=== PATIENT | male | born 1985 | race Hispanic/Latino ===

== ENCOUNTER 2018-10-12 14:26 | Inpatient (IN) | payer OTHER ==
--- NOTE | 2018-10-12 15:55 | C.PDOC ---
History Of Present Illness 32 year old male with hx of HIV no on HAART therapy presents requesting detox from ETOH. Notes last drinkg earlier in the day. Denies any withdrawal symptoms. Denies taking any other drugs or SI / HI or fall / trauma. Denies any anxiety or depression. Denies any physical complaints. No rash, chest pain, fever, abd pain, cough, shortness of breath, headache, neck stiffness or back pain. No GI or complaints. Time Seen by Provider: 10/12/18 15:55 Chief Complaint (Nursing): Substance Abuse History Per: Patient History/Exam Limitations: no limitations Onset/Duration Of Symptoms: Hrs Current Symptoms Are (Timing): Still Present Suicide/Self Injury Attempted (Context): None Modifying Factor(s): Alcohol Recent travel outside of the [place]: No Past Medical History Reviewed: Historical Data, Nursing Documentation, Vital Signs Vital Signs: Last Vital Signs Temp 98.1 F 10/12/18 14:42 Pulse 87 10/12/18 14:42 Resp 18 10/12/18 14:42 BP 102/67 10/12/18 14:42 Pulse Ox 100 10/12/18 14:42 Primary Care Provider: Non [facility] Provider, - Medical History PMH: HIV Denies: Diabetes, Hepatitis, HTN, Seizures, Sexually Transmitted Disease Family History: States: Unknown Family Hx - Social History Hx Alcohol Use: Yes Hx Substance Use: Yes (marijuana/cocaine) - Immunization History Hx Tetanus Toxoid Vaccination: No Hx Influenza Vaccination: No Hx Pneumococcal Vaccination: No Review Of Systems Constitutional: Negative for: Fever, Chills, Sweats, Weakness, Malaise, Weight loss Eyes: Negative for: Pain, Vision Change, Conjunctivae Inflammation, Eyelid Inflammation ENT: Negative for: Ear Pain, Ear Discharge, Nose Pain, Nose Discharge, Nose Congestion, Mouth Pain, Mouth Swelling, Throat Pain, Throat Swelling, Other Cardiovascular: Negative for: Chest Pain, Palpitations, Paroxysmal Noc. Dyspnea, Edema, Light Headedness Respiratory: Negative for: Cough, Shortness of Breath, Pleuritic Pain, Sputum, Wheezing Gastrointestinal: Negative for: Nausea, Vomiting, Abdominal Pain, Diarrhea, Constipation, Melena, Hematochezia, Hematemesis, Rectal Pain Genitourinary: Negative for: Dysuria, Frequency, Incontinence, Hematuria, Penile Discharge, Scrotal Pain, Rash, Penile Pain Musculoskeletal: Negative for: Neck Pain, Shoulder Pain, Arm Pain, Back Pain, Hand Pain, Leg Pain Skin: Negative for: Lesions Neurological: Negative for: Weakness, Numbness, Confusion, Seizures, Altered M ental Status, Headache Psych: Negative for: Anxiety, Depression, Psychosis, Suicidal ideation Physical Exam - Physical Exam Appears: Well, Non-toxic, No Acute Distress Skin: Normal Color, Warm Head: Atraumatic, Normacephalic Eye(s): bilateral: Normal Inspection, PERRL, EOMI Ear(s): Bilateral: Normal Nose: Normal, No Flaring, No Discharge, No Epistaxis, No Deformity Oral Mucosa: Moist Tongue: Normal Appearing Lips: Normal Appearing Teeth: Normal Dentition Throat: Normal, No Erythema, No Exudate, No Drooling, No Mass Neck: Normal, Normal ROM, No Midline Cervical Tenderness, No Paracervical Tenderness, Supple, Other (no meningeal signs) Chest: Symmetrical, No Tenderness Cardiovascular: Rhythm Regular, No Friction Rub, No Murmur, No JVD Respiratory: Normal Breath Sounds, No Rales, No Rhonchi, No Wheezing Gastrointestinal/Abdominal: Soft, No Tenderness, No Mass, No Distention, No Guarding Back: Normal Inspection, No CVA Tenderness, No Vertebral Tenderness, No Paraspinal Tenderness Extremity: Normal ROM (x4) Neurological/Psych: Oriented x3, Normal Speech, Normal Cognition Gait: Steady ED Course And Treatment - Laboratory Results Result Diagrams: 10/13/18 11:05 10/13/18 11:05 O2 Sat by Pulse Oximetry: 100 (Room air) Pulse Ox Interpretation: Normal Medical Decision Making Medical Decision Makin yr old male w/ hx of HIV n/c on HAART therapy p/w etoh detox request. No signs of withdrawal on exam. NO physical complaints. Normal neuro exam. Crisis notified, blood work and UA ordered. 1817 labs unremarkable imaging unremarakble no cough or fever / chills or night sweats medically clear accepted to crisis: dR. Conrad: detox and bipolar pt in NAD, agreeable to plan Disposition - Disposition Disposition: HOSPITALIZED Disposition Time: 18:19 Condition: STABLE - Clinical Impression Clinical Impression: Alcohol abuse - Scribe Statement The provider has reviewed the documentation as recorded by the Scribe Parish Cervantes All medical record entries made by the Scribe were at my direction and personally dictated by me. I have reviewed the chart and agree that the record accurately reflects my personal performance of the history, physical exam, medical decision making, and the department course for this patient. I have also personally directed, reviewed, and agree with the discharge instructions and disposition.
[2018-10-12 16:56] LABS: BASO % 0.5 % (0.0-2.0); EOS # 0.1 K/uL (0.0-0.7); EOS % 2.1 % (0.0-4.0); HEMOGLOBIN 14.7 g/dL (12.0-18.0); LYMPH # 0.8 K/uL (1.0-4.3); LYMPH % 15.5 % (20.0-40.0); MEAN CELL VOLUME 85.2 fL (80.0-94.0); MEAN CORPUSCULAR HEMOGLOBIN 30.2 pg (27.0-31.0); MEAN CORPUSCULAR HGB CONC 35.4 g/dL (33.0-37.0); MEAN PLATELET VOLUME 7.9 fL (7.2-11.7); MONO # 0.6 K/uL (0.0-0.8); NEUT # 3.7 K/uL (1.8-7.0); NEUT % 70.9 % (50.0-75.0); RBC 4.88 Mil/uL (4.40-5.90); RED CELL DISTRIBUTION WIDTH 13.1 % (11.5-14.5); WHITE BLOOD COUNT 5.2 K/uL (4.8-10.8)
[2018-10-12 17:10] LABS: URINE BILIRUBIN NEGATIVE (NEGATIVE); URINE BLOOD NEGATIVE (NEGATIVE); URINE CLARITY Hazy (Clear); URINE COLOR Amber (YELLOW); URINE GLUCOSE (UA) NORMAL (Normal); URINE LEUKOCYTE ESTERASE NEG Leu/uL (Negative); URINE PROTEIN NEGATIVE (NEGATIVE); URINE UROBILINOGEN NORMAL mg/dL (0.2-1.0)
[2018-10-12 17:12] LABS: ACETAMINOPHEN < 10.0 ug/mL (10.0-30.0); ALB/GLOB RATIO 1.1 (1.0-2.1); ALBUMIN 4.2 g/dL (3.5-5.0); ALT/SGPT 49 U/L (21-72); AST/SGOT 46 U/L (17-59); BLOOD UREA NITROGEN 11 mg/dL (9-20); CALCIUM 9.7 mg/dl (8.6-10.4); GFR NON-AFRICAN AMERICAN > 60; SALICYLATE < 1.0 mg/dL 1
[2018-10-12 17:21] LABS: BARBITURATES, UR NEGATIVE (NEGATIVE); BENZODIAZEPINES, UR NEGATIVE (NEGATIVE); OPIATES, UR NEGATIVE (NEGATIVE); PHENCYCLIDINE, UR NEGATIVE (NEGATIVE)
--- NOTE | 2018-10-12 20:04 | PCM.BM ---
<Nataly Vila - Last Filed: 10/12/18 20:06> Treatment Plan Problems - Problems identified on initial assessmt Depression Date Initiated: 10/12/18 Time Initiated: 08:00 Assessment reference: NA Status: Active medication nonadherance Date Initiated: 10/12/18 Time Initiated: 08:00 Assessment reference: NA Status: Active ineffective coping Date Initiated: 10/12/18 Time Initiated: 08:00 Assessment reference: NA Status: Active knowledge Deficit- Alcohol Abuse Date Initiated: 10/12/18 Time Initiated: 08:00 Assessment reference: NA Status: Active Treatment assets and liabiliti Patient Assests: cooperative, insightful, ADL independent, cognitively intact Patient Liabilities: substance abuse - Milieu Protocol Maintain good personal hygiene: daily Encourage regular showers, daily Remind patient to perform daily oral care, daily Assist patient to perform ADL's Conduct patient checks and document Observation sheet: Q15 minutes Maintain personal safety: every other day Educate patient to report safety concerns to staff, every other day Monitor environment for contraband/sharps Medication safety: Monitor for expected outcome, potential side effects: every other day, Assess barriers to learning: every other day, Assess readiness for medication education: every other day <Laurel Conrad - Last Filed: 10/16/18 22:34> - Diagnosis (1) Bipolar 1 disorder, depressed, severe Status: Acute Interventions: 10/16/18 22:35 * Assess/adjust medications daily and /or as needed * See patient on an individual basis 7x/week to assess level of manic behaviors and stability * Discuss risks, benefits, side effects and alternatives of medications * <Carrie Kruger - Last Filed: 10/17/18 15:24> Family Contact Family involvement: Patient does not wish Family/SO involvement Family contact: Patient declines to allow family contact at present - Goals for Treatment Patient goals for treatment: "I am going to [facility] outpatient program." Discharge/Continuing Care - Education Needs Education Needs: Patient Medication, Patient Diagnosis/Disease Process, Patient Coping Skills, Patient Placement options, Patient Community resources - Discharge Discharge Criteria: Free of Suicidal thoughts, Normal sleep pattern, Ability to care for self, No longer exhibiting s/s of withdrawal, Reduction of target symptoms Discharge to:: Home, With Family - Treatment Team Participation Discussed with Family/SO: No Was Patient/Family/SO present at Treatment Team Meeting: Yes
--- NOTE | 2018-10-13 09:57 | CP.PCM.CON ---
History of Present Illness - History of Present Illness History of Present Illness: PGy-1 Medicine Consult Note for Dr. Glass Patient is a 32 year old male with PMHx HIV and ETOH abuse, initially presenting to ER for ETOH detox. Medicine team was consulted for known HIV positive status. Patient infected with HIV congenitally and states he has been non- compliant with medical therapy for many many years. Patient states his CD4 count is 50, though he does not see a doctor outpatient. Patient states that HIV is killing him. He states that "the AIDS is making me cuckoo". Patient states he drinks 1 cup (measured out) per day of whiskey. He states he does not get withdrawal symptoms for alcohol. Patient denies any known opportunistic infections, aside from stating that his HIV has cause a decline in mental function. Patient denies fevers, chills, shortness of breath, nausea, vomiting, diarrhea, skin rashes, chest pain, dizziness, headache. PMHx: HIV, ETOH Allergies: "every side effect from every HIV medication". Otherwise, NKA Surgical hx: Denies Social hx: 1 cup of whisky daily. 1 ppd smoker for many years. Smokes marijuana recreationally. Denies other drug use including IVDU. Family hx: mother - HIV Medications: Takes no medications at home PMD: Denies Review of Systems - Constitutional Constitutional: absent: Chills, Fever - EENT Eyes: absent: Blurred Vision, Photophobia Nose/Mouth/Throat: absent: Nasal Congestion, Sore Throat - Cardiovascular Cardiovascular: absent: Chest Pain, Dyspnea - Respiratory Respiratory: absent: Cough, Wheezing - Gastrointestinal Gastrointestinal: absent: Nausea, Vomiting - Genitourinary Genitourinary: absent: Dysuria, Flank Pain - Musculoskeletal Musculoskeletal: absent: Back Pain, Neck Pain - Neurological Neurological: Confusion. absent: Dizziness, Numbness, Focal Weakness - Psychiatric Psychiatric: absent: Anxiety, Depression Additional comments: "the aids has made me cuckoo" - Hematologic/Lymphatic Hematologic: absent: Easy Bleeding, Easy Bruising Past Patient History - Past Social History Smoking Status: Current Some Days Smoker - CARDIAC Hx Hypertension: No - PULMONARY Hx Tuberculosis: No - NEUROLOGICAL Hx Seizures: No - HEMATOLOGICAL/ONCOLOGICAL Hx Human Immunodeficiency Virus (HIV): Yes - MUSCULOSKELETAL/RHEUMATOLOGICAL Hx Falls: No - GENITOURINARY/GYNECOLOGICAL Hx Sexually Transmitted Disorders: No - PSYCHIATRIC Hx Substance Use: Yes - SURGICAL HISTORY Hx Surgeries: No Meds Allergies/Adverse Reactions: Allergies Allergy/AdvReac Type Severity Reaction Status Date / Time No Known Allergies Allergy Verified 09/20/18 07:32 - Medications Medications: Current Medications Hydroxyzine HCl (Atarax) 25 mg PO Q6 PRN PRN Reason: Anxiety Last Admin: 10/12/18 21:41 Dose: 25 mg Trazodone HCl (Desyrel) 50 mg PO HS PRN PRN Reason: Insomnia Last Admin: 10/12/18 21:41 Dose: 50 mg Physical Exam - Constitutional Appears: Non-toxic, No Acute Distress - Head Exam Head Exam: ATRAUMATIC, NORMOCEPHALIC - Eye Exam Eye Exam: EOMI - ENT Exam ENT Exam: Mucous Membranes Moist - Respiratory Exam Respiratory Exam: Clear to Auscultation Bilateral, NORMAL BREATHING PATTERN. absent: Rhonchi, Wheezes - Cardiovascular Exam Cardiovascular Exam: REGULAR RHYTHM, +S1, +S2 - GI/Abdominal Exam GI & Abdominal Exam: Normal Bowel Sounds, Soft. absent: Tenderness - Extremities Exam Extremities exam: Positive for: normal inspection. Negative for: pedal edema, t enderness - Neurological Exam Neurological exam: Alert, CN II-XII Intact, Oriented x3 - Psychiatric Exam Psychiatric exam: Normal Affect, Normal Mood - Skin Skin Exam: Dry, Intact Results - Vital Signs Recent Vital Signs: Last Vital Signs Temp 97.5 F L 10/13/18 07:02 Pulse 86 10/13/18 07:02 Resp 18 10/13/18 07:02 BP 101/63 10/13/18 07:02 Pulse Ox 100 10/12/18 18:50 - Labs Result Diagrams: 10/13/18 11:05 10/13/18 11:05 Labs: Laboratory Results - last 24 hr 10/12/18 10/12/18 10/12/18 16:50 16:50 16:50 WBC 5.2 RBC 4.88 Hgb 14.7 Hct 41.6 MCV 85.2 MCH 30.2 MCHC 35.4 RDW 13.1 Plt Count 173 MPV 7.9 Neut % (Auto) 70.9 Lymph % (Auto) 15.5 L [place] % (Auto) 11.0 H Eos % (Auto) 2.1 Baso % (Auto) 0.5 Neut # (Auto) 3.7 Lymph # (Auto) 0.8 L [place] # (Auto) 0.6 Eos # (Auto) 0.1 Baso # (Auto) 0.0 Sodium 140 Potassium 3.7 Chloride 105 Carbon Dioxide 28 Anion Gap 11 BUN 11 Creatinine 0.9 Est GFR ( Amer) > 60 Est GFR (Non-Af Amer) > 60 Random Glucose 92 Calcium 9.7 Phosphorus 4.3 Magnesium 2.2 Total Bilirubin 1.3 AST 46 ALT 49 Alkaline Phosphatase 148 H Total Protein 7.8 Albumin 4.2 Globulin 3.7 Albumin/Globulin Ratio 1.1 Urine Color Nano Urine Clarity Hazy Urine pH 6.0 Ur Specific [place] 1.014 Urine Protein Negative Urine Glucose (UA) Normal Urine Ketones Negative Urine Blood Negative Urine Nitrate Negative Urine Bilirubin Negative Urine Urobilinogen Normal Ur Leukocyte Esterase Neg Urine WBC (Auto) 2 Urine RBC (Auto) < 1 Salicylates Urine Opiates Screen Urine Methadone Screen Acetaminophen Ur Barbiturates Screen Ur Phencyclidine Scrn Ur Amphetamines Screen U Benzodiazepines Scrn U Oth Cocaine Metabols U Cannabinoids Screen Alcohol, Quantitative < 10 10/12/18 10/12/18 16:50 16:50 WBC RBC Hgb Hct MCV MCH MCHC RDW Plt Count MPV Neut % (Auto) Lymph % (Auto) [place] % (Auto) Eos % (Auto) Baso % (Auto) Neut # (Auto) Lymph # (Auto) [place] # (Auto) Eos # (Auto) Baso # (Auto) Sodium Potassium Chloride Carbon Dioxide Anion Gap BUN Creatinine Est GFR ( Amer) Est GFR (Non-Af Amer) Random Glucose Calcium Phosphorus Magnesium Total Bilirubin AST ALT Alkaline Phosphatase Total Protein Albumin Globulin Albumin/Globulin Ratio Urine Color Urine Clarity Urine pH Ur Specific [place] Urine Protein Urine Glucose (UA) Urine Ketones Urine Blood Urine Nitrate Urine Bilirubin Urine Urobilinogen Ur Leukocyte Esterase Urine WBC (Auto) Urine RBC (Auto) Salicylates < 1.0 Urine Opiates Screen Negative Urine Methadone Screen Negative Acetaminophen < 10.0 L Ur Barbiturates Screen Negative Ur Phencyclidine Scrn Negative Ur Amphetamines Screen Negative U Benzodiazepines Scrn Negative U Oth Cocaine Metabols Negative U Cannabinoids Screen Positive H Alcohol, Quantitative Assessment & Plan - Assessment and Plan (Free Text) Assessment: HIV, Congenital, Non-compliant with meds -CD4 count 50 as of 09/20/2018 -HIV AB, HIV 1/ w/ reflex - f/u -HIV RNA PCR - f/u -CD4/CD8 lymphocyte count - f/u -ID consulted, Dr. Bardales --Note patient states he has had "every side effect from every HIV medication" -MRI brain with contrast, to determine need for neurology consult -Note, patient has followed in past at [facility] in [place] --Medicine team will contact [facility] for which meds patient is supposed to be taking. Note the center is closed for the weekend. ETOH abuse, detox -Currently asymptomatic -Management per psych PPx -DVT ppx not indicated as patient ambulatory on inpatient psych for detox Assessment and plan d/w Dr. Maria Luisa Whitaker, PGY-1
[2018-10-13 11:18] LABS: BASO % 0.3 % (0.0-2.0); EOS # 0.1 K/uL (0.0-0.7); EOS % 1.9 % (0.0-4.0); HEMOGLOBIN 14.6 g/dL (12.0-18.0); LYMPH # 0.6 K/uL (1.0-4.3); LYMPH % 11.7 % (20.0-40.0); MEAN CELL VOLUME 85.8 fL (80.0-94.0); MEAN CORPUSCULAR HEMOGLOBIN 30.3 pg (27.0-31.0); MEAN CORPUSCULAR HGB CONC 35.3 g/dL (33.0-37.0); MEAN PLATELET VOLUME 8.1 fL (7.2-11.7); MONO # 0.5 K/uL (0.0-0.8); MONO % 9.6 % (0.0-10.0); NEUT # 4.1 K/uL (1.8-7.0); NEUT % 76.5 % (50.0-75.0); RBC 4.84 Mil/uL (4.40-5.90); RED CELL DISTRIBUTION WIDTH 12.9 % (11.5-14.5); WHITE BLOOD COUNT 5.4 K/uL (4.8-10.8)
[2018-10-13 11:58] LABS: BLOOD UREA NITROGEN 9 mg/dL (9-20); GFR NON-AFRICAN AMERICAN > 60
[2018-10-13 11:59] LABS: ALB/GLOB RATIO 1.4 (1.0-2.1); ALBUMIN 4.2 g/dL (3.5-5.0); ALT/SGPT 45 U/L (21-72); AST/SGOT 42 U/L (17-59); CALCIUM 9.3 mg/dl (8.6-10.4)
--- NOTE | 2018-10-13 18:20 | RAD ---
Date of service: 10/12/2018 HISTORY: detox COMPARISON: No prior. TECHNIQUE: Chest PA and lateral views FINDINGS: LUNGS: No active pulmonary disease. PLEURA: No significant pleural effusion identified. No pneumothorax apparent. CARDIOVASCULAR: No aortic atherosclerotic calcification present. Normal cardiac size. No pulmonary vascular congestion. OSSEOUS STRUCTURES: No significant abnormalities. VISUALIZED UPPER ABDOMEN: Normal. OTHER FINDINGS: None. IMPRESSION: No active disease.
--- NOTE | 2018-10-13 20:05 | PCM.PSYCH ---
Initial Psychiatric Evaluation - Initial Psychiatric Evaluation Type of Admission: Voluntary Legal Status: Capacity Chief Complaint (in patient's own words): "I am for my mental problem" Patient's Reaction to Hospitalization: Patient is a 32 year old male, who presented to the ED for alcohol detox, during evaluation, patient was noted with irritability, flight of ideas, rapid pressures speech, labile affect, and rapid mood swings. He reported feeling depressed this self-medicating with alcohol. Patient reports that in the last 3 months he has been having harrison and hysteria, he reports having trouble falling and staying asleep, he only sleeps for about 3-4 hours daily. He reports suffering from depression and anxiety when he was young, but he was never treated. He reports drinking 1 cup (8 oz) of whiskey daily, and smoking 1 gram of marijuana daily, he also smokes 1 pack of cigarettes daily. . He reports that he has never been hospitalized or treated for psychiatric issues in the past. Patient currently lives with his mother and his sister, he reports that he used to live with his girlfriend for many years. Patient was brought to the ED by his family to get help for his drinking. He has never been and he has no children. He currently works for the [employer] in the [place]. Patient also reports that he has HIV, but he has not been taking his HIV Medications. PsychHx: Alcohol use disorder, Cannabis Use Disorder PHHx: HIV FamHx: Denies Current Medications: Active Medications Generic Name Dose Route Start Last Admin Trade Name Freq PRN Reason Stop Dose Admin Hydroxyzine HCl 25 mg 10/12/18 21:02 10/13/18 18:07 Atarax PO 25 mg Q6 PRN Administration Anxiety Gregory Carbonate 300 mg 10/13/18 18:00 10/13/18 18:07 Gregory Carbonate 300mg PO 300 mg TID YOLANDE Administration Nicotine 1 patch 10/13/18 12:15 10/13/18 12:26 Nicoderm Cq TD 1 patch DAILY YOLANDE Administration Trazodone HCl 50 mg 10/12/18 21:00 10/12/18 21:41 Desyrel PO 50 mg HS PRN Administration Insomnia Past Psychiatric History - Past Psychiatric History Previous Treatment History: Inpatient Pertinent Medical Hx (Current Medical&Sleep Prob, Allergies): Allergies Allergy/AdvReac Type Severity Reaction Status Date / Time No Known Allergies Allergy Verified 09/20/18 07:32 No Known Home Med 10/12/18 Review of Systems - Psychiatric Psychiatric: As Per HPI, Abnormal Sleep Pattern, Anxiety, Behavioral Changes, Depression, Irritability, Mood Swings Mental Status Examination - Personal Presentation Personal Presentation: Looks stated age - Affect Affect: Constricted, Depressed - Motor Activity Motor Activity: Psychomotor Agitation - Reliability in Providing Information Reliability in Providing Information: Poor, due to altered mood - Speech Speech: Disorganized, Coherent - Mood Mood: Anxious, Euphoric - Formal Thought Process Formal Thought Process: Flight of ideas, Thought Broadcasting, Perservation - Obsessions/Compulsions Obsessions: None Compulsions: None - Cognitive Functions Orientation: Person, Place, Situation, Time Sensorium: Alert Attention/Concentration: Easily distracted Abstract Thinking: [place] Estimate of Intelligence: Average Judgement: Imparied, as evidence by: Poor judgement - Risk Risk: Seizure, Withdrawal, Diminished functioning - Strength & Assets Inventory Strength & Assets Inventory: Family support DSM 5 DX - DSM 5 DSM 5 Diagnosis: Bipolar I Disorder, Mixed episode, severe Alcohol use disorder, severe Cannabis use disorder - Recommended/Plan of Treatment Treatment Recommendations and Plan of Treatment: Start Gregory 300mg TID, Librium Taper Med consult to restart HIV medications As need medications All risks, benefits and alternatives of the meds discussed, and the pt agreed and understood. Attend groups and activities Individual therapy daily Psychoeducation and support daily Encourage compliance with meds and after care Refer to outpatient program Teach healthy lifestyle methods, i.e. diet, exercise, meditation Smoking cessation and patch if needed 32 min - Smoking Cessation Smoking Cessation Initiated: Yes
--- NOTE | 2018-10-14 14:11 | CP.PCM.PN ---
Subjective - Date & Time of Evaluation Date of Evaluation: 10/14/18 Time of Evaluation: 14:05 - Subjective Subjective: PGY-[address] Glass Patient seen and examined at bedside. No acute events overnight. Patient did express to me that he may sign himself out today or tomorrow if he can find someone to give him a ride. Patient denies dizziness, anxiety, depression, headache, blurry vision. Objective - Vital Signs/Intake and Output Vital Signs (last 24 hours): Temp Pulse Resp BP Pulse Ox 98.8 F 99 H 20 103/60 100 10/14/18 06:00 10/14/18 06:00 10/14/18 06:00 10/14/18 06:00 10/12/18 18:50 - Medications Medications: Current Medications Hydroxyzine HCl (Atarax) 25 mg PO Q6 PRN PRN Reason: Anxiety Last Admin: 10/14/18 13:35 Dose: 25 mg [place] Carbonate (Burgaw Carbonate 300mg) 300 mg PO TID [facility] Last Admin: 10/14/18 13:35 Dose: 300 mg Nicotine (Nicoderm Cq) 1 patch TD DAILY [facility] Last Admin: 10/14/18 09:07 Dose: 1 patch Trazodone HCl (Desyrel) 50 mg PO HS PRN PRN Reason: Insomnia Last Admin: 10/13/18 21:15 Dose: 50 mg - Labs Labs: 10/13/18 11:05 10/13/18 11:05 - Constitutional Appears: Non-toxic, No Acute Distress - Head Exam Head Exam: ATRAUMATIC, NORMOCEPHALIC - Eye Exam Eye Exam: EOMI, Normal appearance - ENT Exam ENT Exam: Mucous Membranes Moist - Respiratory Exam Respiratory Exam: Clear to Ausculation Bilateral, NORMAL BREATHING PATTERN. absent: Rhonchi, Wheezes - Cardiovascular Exam Cardiovascular Exam: REGULAR RHYTHM, +S1, +S2 - GI/Abdominal Exam GI & Abdominal Exam: Soft, Normal Bowel Sounds. absent: Tenderness - Neurological Exam Neurological Exam: Alert, Awake, Oriented x3 - Psychiatric Exam Psychiatric exam: Normal Affect, Normal Mood - Skin Skin Exam: Dry, Intact Assessment and Plan - Assessment and Plan (Free Text) Assessment: HIV, Congenital, Non-compliant with meds -CD4 count 50 as of 09/20/2018 -HIV AB, HIV 1/2 w/ reflex - f/u -HIV RNA PCR - f/u -CD4/CD8 lymphocyte count - f/u -ID consulted, Dr. Bardales --Note patient states he has had "every side effect from every HIV medication" -MRI brain with contrast, to determine need for neurology consult -Note, patient has followed in past at [facility] --Medicine team will contact [facility] for which meds patient is supposed to be taking. Note the center is closed for the weekend. ETOH abuse, detox -Currently asymptomatic -Management per psych PPx -DVT ppx not indicated as patient ambulatory on inpatient psych for detox Assessment and plan d/w Dr. Maria Luisa Whitaker, PGY-1
--- NOTE | 2018-10-14 21:17 | PCM.PYCHPN ---
Psychiatric Progress Note - Psychiatric Progress Note Patient Chief Complaint: "I am for my mental problem" Problems Identified/Issues Discussed: The pt is seen, chart reviewed, case is discussed with staff. The pt is compliant with medications and reports no side-effects. Symptoms are improving but needs more time to stabilize and to avoid relapse. Pt attends groups and activities. Support given, psycho-education provided. After care discussed. Medication Change: Yes Medical Record Reviewed: Yes Mental Status Examination - Cognitive Function Orientation: Person, Place, Situation, Time Memory: Intact Attention: WNL Concentration: WNL - Mood Mood: Anxious, Euphoric - Affect Affect: Constricted, Depressed - Speech Speech: Pressured - Formal Thought Process Formal Thought Process: Flight of ideas, Thought Broadcasting, Perservation - Suicidal Ideation Suicidal Ideation: No - Homicidal Ideation Homicidal Ideation: No Goal/Treatment Plan - Goal/Treatment Plan Progress Toward Problem(s) and Goals/Treatment Plan: Continue medications Support and psychoeducation daily Attend groups and activities daily Individual therapy After care planning by AMINATA and the team - Smoking Cessation Smoking Cessation Initiated: Yes
--- NOTE | 2018-10-14 23:36 | CP.PCM.CON ---
History of Present Illness - History of Present Illness History of Present Illness: 32 year old male with PMHx HIV and ETOH abuse, initially presenting to ER for ETOH detox. Usually follows at [facility] in [place] but stopped going and latest CD4 off rx is now < 50 as per patient Wants to resume rx but has no coverage for continuation of rx Last regimen was Truvada Norvir Viracept as per pt PMHx: HIV, ETOH Allergies: "every side effect from every HIV medication". Otherwise, NKA Surgical hx: Denies Social hx: 1 cup of whisky daily. 1 ppd smoker for many years. Smokes marijuana recreationally. Denies other drug use including IVDU. Family hx: mother - HIV Medications: Takes no medications at home Review of Systems - Review of Systems All systems: reviewed and no additional remarkable complaints except Past Patient History - Past Social History Smoking Status: Current Some Days Smoker - CARDIAC Hx Hypertension: No - PULMONARY Hx Tuberculosis: No - NEUROLOGICAL Hx Seizures: No - HEMATOLOGICAL/ONCOLOGICAL Hx Human Immunodeficiency Virus (HIV): Yes - MUSCULOSKELETAL/RHEUMATOLOGICAL Hx Falls: No - GENITOURINARY/GYNECOLOGICAL Hx Sexually Transmitted Disorders: No - PSYCHIATRIC Hx Substance Use: Yes (marijuana/cocaine) - SURGICAL HISTORY Hx Surgeries: No Meds Allergies/Adverse Reactions: Allergies Allergy/AdvReac Type Severity Reaction Status Date / Time No Known Allergies Allergy Verified 09/20/18 07:32 - Medications Medications: Current Medications Azithromycin (Zithromax) 1,200 mg PO Q7D [facility]; Protocol Hydroxyzine HCl (Atarax) 25 mg PO Q6 PRN PRN Reason: Anxiety Last Admin: 10/14/18 13:35 Dose: 25 mg [place] Carbonate ([place] Carbonate 300mg) 300 mg PO TID [facility]AN[facility] Last Admin: 10/14/18 13:35 Dose: 300 mg Nicotine (Nicoderm Cq) 1 patch TD DAILY [facility] Last Admin: 10/14/18 09:07 Dose: 1 patch Trazodone HCl (Desyrel) 50 mg PO HS PRN PRN Reason: Insomnia Last Admin: 10/13/18 21:15 Dose: 50 mg Trimethoprim/Sulfamethoxazole (Bactrim Ds Tab) 1 tab PO DAILY [facility]; Protocol Physical Exam - Constitutional Appears: Non-toxic, Chronically Ill - Head Exam Head Exam: ATRAUMATIC, NORMAL INSPECTION, NORMOCEPHALIC - Eye Exam Eye Exam: EOMI, Normal appearance, PERRL Pupil Exam: NORMAL ACCOMODATION, PERRL - ENT Exam ENT Exam: Mucous Membranes Moist, Normal Exam - Neck Exam Neck exam: Positive for: Normal Inspection - Respiratory Exam Respiratory Exam: Clear to Auscultation Bilateral, NORMAL BREATHING PATTERN - Cardiovascular Exam Cardiovascular Exam: REGULAR RHYTHM - GI/Abdominal Exam GI & Abdominal Exam: Normal Bowel Sounds, Soft. absent: Tenderness - Rectal Exam Rectal Exam: Deferred - Exam Exam: NORMAL INSPECTION - Extremities Exam Extremities exam: Positive for: normal inspection - Back Exam Back exam: NORMAL INSPECTION - Neurological Exam Neurological exam: Alert, CN II-XII Intact, Normal Gait, Oriented x3, Reflexes Normal - Psychiatric Exam Psychiatric exam: Depressed - Skin Skin Exam: Dry, Intact, Normal Color, Warm Results - Vital Signs Recent Vital Signs: Last Vital Signs Temp 98.8 F 10/14/18 06:00 Pulse 90 10/14/18 15:52 Resp 20 10/14/18 06:00 BP 103/70 10/14/18 15:52 Pulse Ox 100 10/14/18 15:14 - Labs Result Diagrams: 10/13/18 11:05 10/13/18 11:05 Assessment & Plan (1) HIV (human immunodeficiency virus infection) Status: Acute (2) Alcohol abuse Status: Acute (3) UTI (urinary tract infection) Status: Acute (4) AIDS (acquired immunodeficiency syndrome), CD4 <=200 Status: Acute - Assessment and Plan (Free Text) Assessment: cont prophylactic rx enroll in state ADAP program restart HAART rx once stable
--- NOTE | 2018-10-15 08:03 | CP.PCM.PN ---
<Vargas Keene - Last Filed: 10/15/18 12:16> Subjective - Date & Time of Evaluation Date of Evaluation: 10/15/18 Time of Evaluation: 09:00 - Subjective Subjective: Medicine Progress Note for Hospitalist Service, Dr. Napoleon Baig Pt seen and examined at bedside this am. Denies any acute complaints, resting comfortably at bedside. No acute events reported overnight by staff. Pt states that he has signed his 48-hr notice. Denies headache, fever, chills, chest pain, sob, n/v/d/c, cough, abd pain, urinary complaints, or other symptoms. Objective - Vital Signs/Intake and Output Vital Signs (last 24 hours): Temp Pulse Resp BP Pulse Ox 98.4 F 98 H 20 109/59 L 98 10/15/18 06:46 10/15/18 06:46 10/15/18 06:46 10/15/18 06:46 10/15/18 06:46 - Medications Medications: Current Medications Acetaminophen (Tylenol 325mg Tab) 650 mg PO Q6 PRN PRN Reason: Pain, moderate (4-7) Last Admin: 10/15/18 06:37 Dose: 650 mg Azithromycin (Zithromax) 1,200 mg PO Q7D [facility]; Protocol Last Admin: 10/14/18 17:20 Dose: 1,200 mg Chlordiazepoxide (Librium) 25 mg PO Q6 [facility]; Taper Stop: 10/18/18 23:59 Last Admin: 10/15/18 05:58 Dose: 25 mg Chlordiazepoxide (Librium) 25 mg PO Q4H PRN PRN Reason: Alcohol Withdrawal Last Admin: 10/14/18 21:58 Dose: 25 mg Clonidine HCl (Catapres) 0.1 mg PO Q4H PRN PRN Reason: Symptoms of alcohol withdrawl Folic Acid (Folic Acid) 1 mg PO DAILY [facility] Hydroxyzine HCl (Atarax) 25 mg PO Q6 PRN PRN Reason: Anxiety Last Admin: 10/14/18 13:35 Dose: 25 mg [place] Carbonate ([place] Carbonate 300mg) 300 mg PO TID [facility] Last Admin: 10/14/18 17:02 Dose: 300 mg Multivitamins (Hexavitamin) 1 tab PO DAILY [facility] Nicotine (Nicoderm Cq) 1 patch TD DAILY [facility] Last Admin: 10/14/18 09:07 Dose: 1 patch Thiamine HCl (Vitamin B1 Tab) 100 mg PO DAILY [facility] Trazodone HCl (Desyrel) 50 mg PO HS PRN PRN Reason: Insomnia Last Admin: 10/14/18 21:58 Dose: 50 mg Trimethoprim/Sulfamethoxazole (Bactrim Ds Tab) 1 tab PO DAILY [facility]; Protocol - Labs Labs: 10/13/18 11:05 10/13/18 11:05 - Constitutional Appears: Non-toxic, No Acute Distress - Head Exam Head Exam: ATRAUMATIC, NORMOCEPHALIC - Eye Exam Eye Exam: EOMI, Normal appearance, PERRL - ENT Exam ENT Exam: Mucous Membranes Moist - Respiratory Exam Respiratory Exam: Clear to Ausculation Bilateral, NORMAL BREATHING PATTERN. a bsent: Rales, Rhonchi, Wheezes - Cardiovascular Exam Cardiovascular Exam: REGULAR RHYTHM, +S1, +S2. absent: Gallop, Rubs, Murmur - GI/Abdominal Exam GI & Abdominal Exam: Soft, Normal Bowel Sounds. absent: Distended, Guarding, Tenderness, Organomegaly - Extremities Exam Extremities Exam: Full ROM, Normal Capillary Refill, Normal Inspection. absent: Pedal Edema, Tenderness - Neurological Exam Neurological Exam: Alert, Awake, CN II-XII Intact, Oriented x3 - Psychiatric Exam Psychiatric exam: Normal Affect, Normal Mood - Skin Skin Exam: Dry, Intact, Normal Color, Warm Assessment and Plan - Assessment and Plan (Free Text) Assessment: 32 y o male PMhx HIV (infected congenitally) and EtOH abuse, initially presenting to ER for EtOH detox. Reason for medical consult was for known HIV positive status. Plan: HIV, Congenitally-acquired, non-compliant with meds -CD4 ct 50 as of 09/20/18 -HIV 1+2 with reflex: reactive -HIV RNA PCR: f/u -CD4/CD8 lymphocyte ct: f/u -ID consulted, Dr. Bardales, recs appreciated, recommends restarting HAART rx once stable -Patient has stated that he has had "every side effect from every HIV medication" -Patient has followed in past at [facility] in [place] -Will d/c pt home on 1,200 mg Azithromycin q7d to cont 4 additional weeks of tx, and Bactrim DS daily for total of 30 days, for PPX against opportunistic infections for MAC, Toxoplasmosis, and PCP PNA, in light of CD4 ct of 50. Pt currently asymptomatic at this time. -Recommend pt f/u after d/c with [facility], or a primary care physician of his choice. -Also recommend pt call [facility] #[phone], to obtain free HIV medications. EtOH abuse, detox -Currently asymptomatic -Further management as per psych -EtOH cessation counseling provided to pt PPX: DVT ppx not indicated as pt ambulatory on inpatient psych for detox Dispo: Will sign off at this time, please re-consult if needed. Thank you for allowing us to participate in the care of your patient. Pt seen, examined with, and plan discussed with Dr. Napoleon Baig, attending physician. Vargas Keene DO PGY-1, Spinal Surgeon Pager #[phone] <Napoleon Baig J - Last Filed: 10/17/18 19:29> Objective - Vital Signs/Intake and Output Vital Signs (last 24 hours): Temp Pulse Resp BP Pulse Ox 97.7 F 86 20 128/92 H 95 10/17/18 06:50 10/17/18 15:47 10/17/18 06:50 10/17/18 15:47 10/16/18 07:14 - Medications Medications: Current Medications Acetaminophen (Tylenol 325mg Tab) 650 mg PO Q6 PRN PRN Reason: Pain, moderate (4-7) Last Admin: 10/15/18 06:37 Dose: 650 mg Chlordiazepoxide (Librium) 25 mg PO BID [facility]; Taper Stop: 10/18/18 23:59 Last Admin: 10/17/18 17:45 Dose: 25 mg Chlordiazepoxide (Librium) 25 mg PO Q4H PRN PRN Reason: Alcohol Withdrawal Last Admin: 10/14/18 21:58 Dose: 25 mg Clonidine HCl (Catapres) 0.1 mg PO Q4H PRN PRN Reason: Symptoms of alcohol withdrawl Folic Acid (Folic Acid) 1 mg PO DAILY [facility] Last Admin: 10/17/18 09:31 Dose: 1 mg Hydroxyzine HCl (Atarax) 25 mg PO Q6 PRN PRN Reason: Anxiety Last Admin: 10/15/18 21:35 Dose: 25 mg [place] Carbonate ([place] Carbonate 300mg) 300 mg PO TID [facility] Last Admin: 10/17/18 17:45 Dose: 300 mg Mirtazapine (Remeron) 15 mg PO HS [facility] Last Admin: 10/16/18 22:19 Dose: Not Given Multivitamins (Hexavitamin) 1 tab PO DAILY [facility] Last Admin: 10/17/18 09:32 Dose: 1 tab Nicotine (Nicoderm Cq) 1 patch TD DAILY [facility] Last Admin: 10/17/18 09:31 Dose: 1 patch Thiamine HCl (Vitamin B1 Tab) 100 mg PO DAILY [facility] Last Admin: 10/17/18 09:32 Dose: 100 mg Trazodone HCl (Desyrel) 50 mg PO HS PRN PRN Reason: Insomnia Last Admin: 10/15/18 21:35 Dose: 50 mg - Labs Labs: 10/13/18 11:05 10/17/18 07:16 Attending/Attestation - Attestation I have personally seen and examined this patient.: Yes I have fully participated in the care of the patient.: Yes I have reviewed all pertinent clinical information, including history, physical exam and plan: Yes Notes (Text): 10/17/18 19:28 This is a late entry. Care of this patient was gone over in detail with resident Dr. Keene. Napoleon Baig D.O.
[2018-10-15] MEDS: Tmp-Smz 800 mg-160 mg DS Tab PO SCH (09:18)
[2018-10-15] MEDS: Multiple Vitamins Tab PO SCH (09:23)
[2018-10-16 07:15] VITALS: O2SAT 95
[2018-10-16 09:08] LABS: % CD4 (T HELPER CELL) 10 Percent (30-61); % CD8 (SUPPRESSOR T CELL) 56 Percent (12-42); ABSOLUTE CD4 CELLS 50 Cells/mcL (490-1740); ABSOLUTE CD8 CELLS 288 Cells/mcL (180-1170); ABSOLUTE LYMPHOCYTES 514 Cells/mcL (850-3900); HELPER/SUPPRESSOR RATIO 0.17 Ratio (0.86-5.00)
[2018-10-16] MEDS: Tmp-Smz 800 mg-160 mg DS Tab PO SCH (09:08)
[2018-10-16] MEDS: Multiple Vitamins Tab PO SCH (09:08)
[2018-10-16] MEDS ORDERED: Propofol 10 mg/ml Inj (20 ML) ONE (11:45)
[2018-10-16] MEDS ORDERED: Midazolam 2 MG/2 ML VIAL ONE (11:45)
--- NOTE | 2018-10-16 13:26 | PCM.PYCHPN ---
Psychiatric Progress Note - Psychiatric Progress Note Patient seen today, length of contact: 16 min Patient Chief Complaint: "I am still down" Problems Identified/Issues Discussed: The pt is seen, chart reviewed, case discussed with staff. Support and psychoeducation given, CBT and [place] used briefly. Pt is improving slowly but needs more time, still has ongoing withdrawal symptoms and high risk of relapse. He reports feelings of guilt and hopelessness. He is compliant with medications and reports no SEs. Risks discussed. After care discussed Medication Change: Yes (add remeron) Medical Record Reviewed: Yes Mental Status Examination - Cognitive Function Orientation: Person, Place, Situation, Time Memory: Intact Attention: WNL Concentration: WNL Association: WNL Fund of Knowledge: WNL - Mood Mood: Depressed, Anxious - Affect Affect: Constricted, Depressed - Speech Speech: Pressured - Formal Thought Process Formal Thought Process: Paranoia, Loosening of associations - Suicidal Ideation Suicidal Ideation: No - Homicidal Ideation Homicidal Ideation: No Goal/Treatment Plan - Goal/Treatment Plan Need for Continued Stay: Severe depression anxiety, Discharge may exacerbated symptoms, Severe functional impairment Progress Toward Problem(s) and Goals/Treatment Plan: Continue medications but add remeron level Support and psychoeducation daily Attend groups and activities daily After care planning by AMINATA
[2018-10-17 07:45] LABS: BLOOD UREA NITROGEN 12 mg/dL (9-20); CALCIUM 10.2 mg/dl (8.6-10.4); GFR NON-AFRICAN AMERICAN > 60
[2018-10-17] MEDS: Multiple Vitamins Tab PO SCH (09:32)
--- NOTE | 2018-10-17 12:25 | PCM.PYCHPN ---
Psychiatric Progress Note - Psychiatric Progress Note Patient seen today, length of contact: 16 min Patient Chief Complaint: "I am better" Problems Identified/Issues Discussed: The pt is seen, chart reviewed, case is discussed with staff. Support and psychoeducation given, CBT and [place] used briefly The pt is improving slowly but needs more time due to severity of symptoms and relapse risk. No SEs from medications, risks discussed. After care discussed, AMINATA contacted his mother Pt is better today and will likely leave tomorrow Medication Change: No Medical Record Reviewed: Yes Mental Status Examination - Cognitive Function Orientation: Person, Place, Situation, Time Memory: Intact Attention: WNL Concentration: WNL Association: WNL Fund of Knowledge: WNL - Mood Mood: Depressed, Anxious - Affect Affect: Constricted, Depressed - Speech Speech: Pressured - Formal Thought Process Formal Thought Process: Paranoia, Loosening of associations - Suicidal Ideation Suicidal Ideation: No - Homicidal Ideation Homicidal Ideation: No Goal/Treatment Plan - Goal/Treatment Plan Need for Continued Stay: Severe depression anxiety, Discharge may exacerbated symptoms, Severe functional impairment Progress Toward Problem(s) and Goals/Treatment Plan: Continue medications but add remeron Li level is on the low side but he is stable enough Support and psychoeducation daily Attend groups and activities daily After care planning by AMINATA
[2018-10-18 06:45] VITALS: BP 120/74; PULSE 97; RESP 18; TEMP 97.9
[2018-10-18] MEDS: Multiple Vitamins Tab PO SCH (09:27)
--- NOTE | 2018-10-18 09:38 | PCM.PYCHDC ---
Mental Status Examination - Mental Status Examination Orientation: Person Discharge Summary - Discharge Note Laboratory Data: Abnormal Lab Results 10/13/18 11:05 HIV-1 RNA Qnt (RT-PCR) 4.65 H Consultations:: List each consultation separately and include: 1. Reason for request. 2. Findings. 3. Follow-up Summary of Hospital Course include:: 1. Description of specific treatment plan utilized for patients during their course of treatmen. 2. Summarize the time- course for resolution of acute symptoms and/or regressed behaviors. 3. Describe issues identified and worked on during hospitalization. 4. Describe medication utilized. 5. Describe medical problems identified and treated. 6. Reassessment of suicide risk Summary of Hospital Course: He is going to [facility] out psych [facility] - Diagnosis (1) Bipolar 1 disorder, depressed, severe Current Visit: Yes Status: Acute - Final Diagnosis (DSM 5) Condition upon Discharge: STABLE Disposition: HOME/ ROUTINE Follow-up Treatment Plan: Continue medications but add remeron Li level is on the low side but he is stable enough Support and psychoeducation daily Attend groups and activities daily After care planning by AMINATA Prescriptions/Medication Reconciliation: Azithromycin [Zithromax] 1,200 mg PO Q7D #8 tab hydrOXYzine HCl [Atarax] 25 mg PO BID PRN #30 tab PRN Reason: Anxiety [place] Carbonate [[place] Carbonate 300MG] 300 mg PO TID #90 cap Mirtazapine [Remeron] 15 mg PO HS #30 tab Sulfamethoxazole/Trimethoprim [Bactrim DS Tab] 1 tab PO DAILY #30 tab
== END 2018-10-18 11:51 | disposition home or self-care (01) | DRG 753 ==
LOC: C.ER 14:26 → C.7D 18:20 → C.5E 19:17
PROVIDERS: ADMIT Psychiatry & Neurology Psychiatry; ATTEND Psychiatry & Neurology Psychiatry
PROC: GZ56ZZZ Individual Psychotherapy, Supportive (ICD-10-PCS; principal; 2018-10-12)
DX: F31.63 Bipolar disorder, current episode mixed, severe, without psychotic features (principal); B20 Human immunodeficiency virus [HIV] disease; Z91.14 Patient's other noncompliance with medication regimen; F10.10 Alcohol abuse, uncomplicated; F17.210 Nicotine dependence, cigarettes, uncomplicated; F12.10 Cannabis abuse, uncomplicated; Y90.9 Presence of alcohol in blood, level not specified